=== PATIENT | female | born 1950 | race Caucasian/White ===

== ENCOUNTER → 2018-01-26 | Outpatient (CLI) | payer MEDICARE, BC ==
[~2018-01-26] MED LIST: CALC-649 PO; MULT-1335 PO
--- NOTE | 2018-01-26 18:46 | RADIOLOGY IMAGING REPORT ---
FACILITY: [facility] PATIENT NAME: Mary Ledezma : 1950 MR: [id number] V: [id number] EXAM DATE: ORDERING PHYSICIAN: LORI FRY TECHNOLOGIST: Location: [facility] [place] Patient: Mary Ledezma : 1950 Visit/Account:[id number] Date of Sevice: 01/26/2018 EXAMINATION: Right shoulder, 2 views 01/26/2018 12:38 PM HISTORY: Right shoulder pain for 2 months COMPARISON: None FINDINGS: Minimal hypertrophy of the AC joint. There is a laterally downsloping acromion process alt devan the subacromial joint space is well-preserved. Glenohumeral articulation is normal. No acute-ap pearing bony finding. IMPRESSION: No acute bony abnormality. There are some mild acromial and AC joint changes which may pr edispose to shoulder impingement. Report Dictated By: Armando Montano MD at 01/26/2018 6:40 PM Report E-Signed By: Armando Montano MD at 01/26/2018 6:42 PM WSN:[id number]
== END ==
LOC: RAD 12:30
PROVIDERS: ATTEND Family Medicine
DX: M25.511 Pain in right shoulder (principal)

== ENCOUNTER → 2018-01-29 | Outpatient (CLI) | payer MEDICARE, BC ==
--- NOTE | 2018-01-29 14:57 | RADIOLOGY IMAGING REPORT ---
FACILITY: [facility] PATIENT NAME: Mary Ledezma : 1950 MR: [id number] V: [id number] EXAM DATE: ORDERING PHYSICIAN: MARY BANEGAS TECHNOLOGIST: [facility] Patient: Mary Ledezma : 1950 Visit/Account:[id number] Date of Sevice: 01/29/2018 MRI right shoulder without contrast Indication: Shoulder pain. Comparison: Plain films dated 01/26/2018 are reviewed. Technique: Multiplanar, multisequence MRI examination is performed of the right shoulder without cont rast. FINDINGS: There is an upsloping acromion. There are mild-moderate severity changes of acromioclavicular joint o steoarthritis identified. There is capsular thickening and pericapsular edema most pronounced along t he dorsal margin of the joint space and there is overlying subcutaneous edema present. Correlate clin ically. This may reflect a recent low-grade acromioclavicular joint sprain. The glenohumeral joint is appropriately aligned. There are normal articular cartilage surfaces. There is abnormal morphology i nvolving the posterior-inferior glenoid labrum suspicious for a posterior labral tear in the 7-8:00 p osition. A tiny para labral cyst is seen in the 6:00 position. No other suspected labral abnormality. Examination of the rotator cuff demonstrates moderate severity supraspinatus insertional tendinopathy . There is low-grade partial-thickness undersurface and bursal sided supraspinatus tearing most prono unced at the anterior and mid insertion. No full-thickness tear is identified. There is mild infraspi natus insertional tendinopathy without focal tearing. Subscapularis insertion is maintained. The long head biceps tendon is well seen within the bicipital groove. Insertion upon the glenoid is intact. There is a small amount of fluid within the subacromial-subdeltoid bursa. Rotator cuff musculature is normal in bulk. No atrophy seen. IMPRESSION: 1. Moderate severity right shoulder supraspinatus and infraspinatus insertional tendinopathy with low -grade partial-thickness undersurface and bursal sided partial-thickness tearing. No full-thickness e xtension. 2. Abnormal dorsal capsular thickening and edema with surrounding subcutaneous edema involving the ac romioclavicular joint. Correlate for recent acromioclavicular joint sprain. Clinical correlation is n ecessary. This could also reflect a recent acromioclavicular joint injection. 3. Mild subacromial-subdeltoid bursitis. 4. Not arthrogram findings suspicious for tearing of the posterior-inferior glenoid labrum with a tin y para labral cyst in the 6:00 position. Report Dictated By: Kelvin Solares at 01/29/2018 2:46 PM Report E-Signed By: Kelvin Solares at 01/29/2018 2:54 PM WSN:[id number]
== END ==
LOC: MRI 01:49
PROVIDERS: ATTEND Nurse Practitioner Family
DX: S46.811A Strain of other muscles, fascia and tendons at shoulder and upper arm level, right arm, initial encounter (principal)

== ENCOUNTER → 2018-03-20 | Outpatient (CLI) | payer MEDICARE, BC ==
--- NOTE | 2018-03-20 14:55 | RADIOLOGY IMAGING REPORT ---
FACILITY: [facility] PATIENT NAME: SHAYE HAJI : [id number] MR: [id number] V: [id number] EXAM DATE: ORDERING PHYSICIAN: LORI FRY TECHNOLOGIST: Marsha Landon PROCEDURE:BILATERAL DIGITAL SCREENING MAMMOGRAM WITH CAD ASSISTED INTERPRETATION & 3D TOMOSYNTHESIS COMPARISON:Prior mammograms 03/11/17, 02/26/16, 02/21/15, 12/30/13, 12/18/12, 10/23/11. INDICATIONS:SCREENING FINDINGS: Moderately dense fibroglandular tissue is seen throughout the breasts. The parenchymal pattern has remained stable allowing for difference in mammographic technique & patient positioning. There is no evidence of malignant appearing mass, malignant appearing calcifications or other secondary sign of malignancy in either breast. DIAGNOSTIC CATEGORY 1--NEGATIVE. RECOMMENDATIONS: ROUTINE MAMMOGRAM AND CLINICAL EVALUATION. IMPRESSION: BIRADS 1: Negative. No significant abnormality is seen. Dictated by: Mila Barrera M.D. on 03/20/2018 at 10:25 Transcribed by: ABEBE on 03/20/2018 at 10:31 Approved by: Mila Barrera M.D. on 03/20/2018 at 14:54 [facility]
== END ==
LOC: MAMO 02:45
PROVIDERS: ATTEND Family Medicine
DX: Z12.31 Encounter for screening mammogram for malignant neoplasm of breast (principal)
CPT/HCPCS: 77063; 77067